=== PATIENT | male | born 1980 | race Caucasian/White ===

== ENCOUNTER 2017-07-19 11:31 | Emergency (ER) | payer OTHER ==
[~2017-07-19] VITALS: Ht 180.3 cm; Wt 79.4 kg
[2017-07-19] MEDS ORDERED: IBUPROFEN 800 MG TABLET PO ONE (11:45)
[2017-07-19] MEDS ORDERED: IBUPROFEN 800 MG TABLET ONE (11:58)
[2017-07-19 12:17] LABS: BASOPHILS % (AUTO) 0.7 % (0.0-2.0); EOSINOPHILS # (AUTO) 0.2 K/uL (0.0-0.7); EOSINOPHILS % (AUTO) 3.6 % (0.0-7.0); HEMATOCRIT 46.6 % (36.7-47.1); HEMOGLOBIN 16.2 g/dL (12.5-16.3); LYMPHOCYTES # (AUTO) 1.2 K/uL (20.0-40.0); LYMPHOCYTES % (AUTO) 19.4 % (20.5-51.5); MEAN CORPUSCULAR HEMOGLOBIN 31.7 uug (23.8-33.4); MEAN CORPUSCULAR HGB CONC 35 g/dL (32.5-36.3); MEAN CORPUSCULAR VOLUME 91.2 fL (73.0-96.2); MONOCYTES # (AUTO) 0.5 K/uL (2.0-10.0); MONOCYTES % (AUTO) 8.5 % (0.0-11.0); NEUTROPHILS # (AUTO) 4.1 K/uL (1.8-8.9); NEUTROPHILS % (AUTO) 67.8 % (38.5-71.5); PLATELET COUNT (AUTO) 297 K/uL (152-348); RED BLOOD CELL COUNT(AUTO) 5.11 MIL/uL (4.06-5.63); WHITE BLOOD COUNT (AUTO) 6.1 K/uL (3.6-10.2)
[2017-07-19 12:19] LABS: CREATININE 1.1 mg/dL (0.6-1.3); POTASSIUM 4.6 mmol/L (3.5-5.1)
--- NOTE | 2017-07-19 12:21 | NUR ---
Patient is resting comfortably on gurney while watching bedside TV, pending blood tests results & CT scans at this time.
[2017-07-19] MEDS ORDERED: IOHEXOL 300MG/ML 100 ML INFUS..BTL ONE (13:11)
[2017-07-19] MEDS ORDERED: IV NORMAL SALINE 100 ML ONE (13:11)
--- NOTE | 2017-07-19 14:02 | NUR ---
Patient discharged to home in stable conditon. Written and verbal after care instructions given to patient. Patient verbalizes understanding of instructions.
== END 2017-07-19 14:03 | disposition home or self-care (01) ==
LOC: ER 11:31
DX: J02.9 Acute pharyngitis, unspecified (principal)
CPT/HCPCS: 36415; 70491; 85025; A4663; J3490; Q9967